=== PATIENT | female | born 1995 | race Caucasian/White ===

== ENCOUNTER 2017-08-01 18:43 | Emergency (ER) | payer MEDICAID, OTHER ==
[~2017-08-01] VITALS: Ht 160 cm; Wt 84.5 kg
[2017-08-01 19:02] VITALS: Ht 160 cm; Wt 84.5 kg
--- NOTE | 2017-08-01 21:00 | ERD ---
ER Documentation Chief Complaint Date/Time DATE: 08/01/17 TIME: 20:58 Chief Complaint bib self, cc: left upper quadrant abd. pain x 2 weeks, no trauma, negar HPI 22-year-old female presents to the emergency department complaining of intermittent moderate left upper quadrant abdominal pain for the past 2 weeks. Patient denies nausea, vomiting or diarrhea. She says that the pain usually starts a couple hours prior to being after eating. She denies any and medications. Admits to having flatulence ROS All systems reviewed and are negative except as per history of present illness. Medications Home Meds Active Scripts Acetaminophen* (Tylenol*) 325 Mg Tablet, 2 TAB PO Q6 Y for PAIN AND OR ELEVATED TEMP, #20 TAB Prov:PEDRO DYER PA-C 08/01/17 Allergies Allergies: Coded Allergies: No Known Allergy (Unverified , 08/10/12) PMhx/Soc History of Surgery: No Anesthesia Reaction: No Hx Neurological Disorder: No Hx Respiratory Disorders: No Hx Cardiac Disorders: No Hx Psychiatric Problems: No Hx Miscellaneous Medical Probl: No Hx Alcohol Use: No Hx Substance Use: No Hx Tobacco Use: No Physical Exam Vitals Vital Signs Date Time Temp Pulse Resp B/P Pulse Ox O2 Delivery O2 Flow Rate FiO2 08/01/17 22:43 98.6 82 21 123/84 100 Room Air 08/01/17 19:02 98.3 101 18 141/85 100 Physical Exam GENERAL: well-developed/well-nourished, in no apparent distress, non-toxic appearing HENT: NC/AT, moist mucous membranes EYES: Conjunctiva normal NECK: Supple, no lymphadenopathy PULM: CTA bilaterally, no rales, rhonchi, or wheezing heard CV: Normal S1S2, RRR, good capillary refill GI: Soft, non-distended, nontender Normal bowel sounds, no masses or organomegaly felt on exam No gross peritonitis, no bruits Negative Rovsing, negative Echavarria, negative McBurney's point, Negative CVAT BACK: No masses EXT: No clubbing, cyanosis, or edema NEURO: Alert and Orientated SKIN: Intact, normal turgor PSYCH: Normal mood and mentation Result Diagram: 08/01/17204908/01/172049 Results 24 hrs Laboratory Tests Test 08/01/17 20:50 White Blood Count 8.210^3/ul Red Blood Count 4.4810^6/ul Hemoglobin 13.5g/dl Hematocrit 40.0% Mean Corpuscular Volume 89.3fl Mean Corpuscular Hemoglobin 30.1pg Mean Corpuscular Hemoglobin Concent 33.8g/dl Red Cell Distribution Width 12.5% Platelet Count 31499^3/UL Mean Platelet Volume 9.6fl Neutrophils % 68.7% Lymphocytes % 24.2% Monocytes % 5.5% Eosinophils % 0.8% Basophils % 0.6% Nucleated Red Blood Cells % 0.0/100WBC Neutrophils # (Manual) 5.710^3/ul Lymphocytes # 2.010^3/ul Monocytes # 0.510^3/ul Eosinophils # 0.110^3/ul Basophils # 0.110^3/ul Nucleated Red Blood Cells # 0.010^3/ul Sodium Level 140mmol/L Potassium Level 3.8mmol/L Chloride Level 103mmol/L Carbon Dioxide Level 28mmol/L Anion Gap 13 Blood Urea Nitrogen 7mg/dl Creatinine 0.67mg/dl Glucose Level 97mg/dl Calcium Level 10.3mg/dl Total Bilirubin 0.3mg/dl Direct Bilirubin 0.00mg/dl Indirect Bilirubin 0.3mg/dl Aspartate Amino Transf (AST/SGOT) 20IU/L Alanine Aminotransferase (ALT/SGPT) 27IU/L Alkaline Phosphatase 64IU/L Total Protein 8.6g/dl Albumin 5.0g/dl Globulin 3.60g/dl Albumin/Globulin Ratio 1.38 Lipase 77U/L Procedures/MDM This is a 22-year-old female presenting to the emergency department complaining of epigastric and left upper quadrant abdominal pain intermittent for the past 2 weeks. Differentials include but not limited to gastritis, PUD. I will low suspicion for cholecystitis, pancreatitis, appendicitis, diverticulitis. Patient appears well, she has stable vital signs, she is afebrile and ambulating and speaking clearly. She does not seem to be in any distress. Lab work was drawn. CBC did not show any evidence of leukocytosis or anemia. CMP did not show any evidence of renal, liver, or electrolyte abnormalities. Lipase was normal. UA did not show any evidence of hemoglobin or urinary tract infection. Patient stable to be discharged home to follow-up PCP. Discussed return to the ER for any worsening sinus symptoms patient understands and agrees with this plan Gallbladder US: Normal right upper quadrant ultrasound. Negative for gallstones or evidence of biliary obstruction. Departure Diagnosis: Primary Impression: Abdominal pain Condition: Stable PEDRO DYER PA-C Aug 01, 2017 21:00
[2017-08-01 21:31] LABS: BASOPHIL # 0.1 10^3/ul (0.0-0.1); BASOPHILS % 0.6 % (0.0-2.0); EOSINOPHILS # 0.1 10^3/ul (0.0-0.5); EOSINOPHILS % 0.8 % (0.0-7.0); HEMOGLOBIN 13.5 g/dl (12.0-16.0); LYMPHOCYTES % 24.2 % (15.0-51.0); MEAN CORPUSCULAR HEMOGLOBIN 30.1 pg (29.0-33.0); MEAN CORPUSCULAR HGB CONC 33.8 g/dl (32.0-37.0); MEAN CORPUSCULAR VOLUME 89.3 fl (82.0-101.0); MEAN PLATELET VOLUME 9.6 fl (7.4-10.4); MONOCYTE # 0.5 10^3/ul (0.3-0.9); MONOCYTES % 5.5 % (0.0-11.0); NEUTROPHILS % 68.7 % (39.0-77.0); PLATELET COUNT 291 10^3/UL (140-415); RED BLOOD COUNT 4.48 10^6/ul (4.20-5.40); RED CELL DISTRIBUTION WIDTH 12.5 % (11.5-14.5); WHITE BLOOD COUNT 8.2 10^3/ul (4.8-10.8)
[2017-08-01 21:50] LABS: ALBUMIN/GLOBULIN RATIO 1.38; BILIRUBIN,INDIRECT 0.3 mg/dl (0-1.1); BILIRUBIN,TOTAL 0.3 mg/dl (0.2-1.3); CALCIUM 10.3 mg/dl (8.4-10.2); CREATININE 0.67 mg/dl (0.44-1.00); POTASSIUM 3.8 mmol/L (3.5-5.1); TOTAL PROTEIN 8.6 g/dl (6.1-8.1)
--- NOTE | 2017-08-01 21:50 | RADRPT ---
PROCEDURE: Limited ultrasound of the gallbladder. CLINICAL INDICATION: 22 years of age, female. Abdominal pain. TECHNIQUE: Multiple real-time longitudinal and transverse images of the gallbladder and the bile d ucts were acquired utilizing a curved array transducer. Images were reviewed on a high-resolution [facility] workstation. COMPARISON: None available. FINDINGS: Pancreas: Visualized portions normal. Liver appearance: Normal. Liver length: 13.8 cm Bile Ducts: No intrahepatic or extrahepatic biliary ductal dilatation. CBD: 0.2 cm. Gallbladder: Normal. Gallbladder wall measures 2 mm Main portal vein is patent with hepatopetal flow. Right kidney length: 11.7 cm. Right kidney appearance: Normal. Other: None. IMPRESSION: Normal right upper quadrant ultrasound. Negative for gallstones or evidence of biliary obstruction. RPTAT: HCTS Physician Freddie Date Time Electronically viewed and signed by Physician Freddie on 08/01/2017 21:50 /
[2017-08-01] MEDS ORDERED: ACET325T33 PO (22:27)
[2017-08-01 22:43] VITALS: BP 123/84; PULSE 82; RESP 21; TEMP 98.6
== END 2017-08-01 22:43 | disposition home or self-care (01) ==
LOC: FTE 18:43
DX: R10.12 Left upper quadrant pain (principal)
CPT/HCPCS: 36415; 76705; 80053; 83690; 85025; Z7502